=== PATIENT | male | born 1985 | race Caucasian/White ===

== ENCOUNTER 2018-10-24 19:00 | Emergency (ER) | payer BC, OTHER ==
[2018-10-24] MEDS ORDERED: Tetracaine 0.5% OPHTH SOLN/PF 4 ML BOT ONE (19:19)
[2018-10-24] MEDS ORDERED: Sulfacetamide Sodium 10% Ophth Soln 15 ML BOT ONE (19:34)
== END 2018-10-24 19:42 | disposition home or self-care (01) ==
LOC: MADERS 19:00
DX: S05.02XA Injury of conjunctiva and corneal abrasion without foreign body, left eye, initial encounter (principal); Z71.6 Tobacco abuse counseling; F17.210 Nicotine dependence, cigarettes, uncomplicated; W22.8XXA Striking against or struck by other objects, initial encounter
CPT/HCPCS: 99406

== ENCOUNTER 2018-12-04 11:17 | Outpatient (CLI) | payer OTHER ==
[2018-12-04 11:51] LABS: #Basophils 0.1 thou/uL (0.0-0.2); #Eosinphils 0.3 thou/uL (0.0-0.7); #Lymphocytes 3.6 thou/uL (1.20-3.40); #Monocytes 0.6 thou/uL (0.11-0.59); #Neutrophils 5.6 thou/uL (1.40-6.50); %Basophils 1.3 % (0.0-1.0); %Eosinophils 2.9 % (0.0-10.0); %Monocytes 5.5 % (0.0-10.0); %Neutrophils 55.2 % (42.0-75.0); Hemoglobin 15.9 g/dL (14.0-18.0); Mean Corpuscular HGB CONC 33.2 g/dL (32.0-36.0); Mean Corpuscular Hemoglobin 28.5 pg (27.0-31.0); Mean Corpuscular Volume 85.9 fL (78.0-98.0); Mean Platelet Volume 6.3 fL (7.4-10.4); Platelet Count 288 thou/uL (130-400); RBC Distribution Width 11.8 % (11.5-14.5); White Blood Cell (WBC) Count 10.1 thou/uL (4.8-10.8)
[2018-12-04 12:09] LABS: ALT (SGPT) 27 U/L (8-55); AST (SGOT) 19 U/L (5-34); Albumin 5.1 g/dL (3.5-5.0); Alkaline Phosphatase 68 U/L (40-110); Anion Gap 14 mmol/L (10-20); BUN (Urea Nitrogen) 12 mg/dL (8.9-20.6); Bilirubin, Total 0.6 mg/dL (0.2-1.2); Calc. Creatinine Clearance 0 mL/min (70-130); Calcium 10.1 mg/dL (7.8-10.44); Carbon Dioxide 27 mmol/L (22-29); Chloride 104 mmol/L (98-107); Estimated GFR-MDRD Greater than 90; Glucose 82 mg/dL (70-105); Potassium 4.2 mmol/L (3.5-5.1); Protein, Total 8.1 g/dL (6.0-8.3); Sodium 141 mmol/L (136-145)
[2018-12-04 12:25] LABS: Bilirubin Negative (Negative); Blood, Urine Negative (Negative); Clarity Clear (Clear); Glucose, Urine (Dipstick) Negative (Negative); Leukocyte Negative (Negative); Nitrite Negative (Negative); Protein, Urine (Dipstick) Negative (Neg-Trace)
[2018-12-04 12:29] LABS: RBC/HPF None Seen HPF (0-3); Squamous Epithelial None Seen HPF (0-3); WBC/HPF 0-3 HPF (0-3)
--- NOTE | 2018-12-04 14:01 | RAD ---
SUPINE ABDOMEN: Date: 12/04/18 HISTORY: Abdominal pain. FINDINGS: Bowel gas pattern unremarkable. There is scattered stool and gas in the colon. Small bowel gas patter n is normal. No mass or abnormal calcifications seen. IMPRESSION: Unremarkable bowel gas pattern seen on this single supine projection. POS: [facility]
== END 2018-12-04 11:18 | disposition home or self-care (01) ==
LOC: MADLABBHPM 11:17
PROVIDERS: ATTEND Family Medicine
DX: R10.84 Generalized abdominal pain (principal)
CPT/HCPCS: 36415; 74018; 80053; 81001; 85025

== ENCOUNTER 2020-04-22 10:02 | Outpatient (CLI) | payer OTHER | END 2020-04-22 10:03 | disposition home or self-care (01) | LOC: MADRAD 10:02 | PROVIDERS: ATTEND Family Medicine | DX: Z80.1 Family history of malignant neoplasm of trachea, bronchus and lung (principal) | CPT/HCPCS: 71046 ==

== ENCOUNTER 2020-08-25 16:29 | Emergency (ER) | payer OTHER ==
[2020-08-25] MEDS ORDERED: Lidocaine Viscous Sol 2% 15 ml UD Cup ONE (17:12)
[2020-08-25] MEDS ORDERED: Clindamycin 150 MG CAP ONE (17:32)
[2020-08-25] MEDS ORDERED: cefTRIAXone\\ROCEPHIN 1 GM VIAL ONE (17:32)
[2020-08-25] MEDS ORDERED: Morphine 4 MG/ML VIAL ONE (17:32)
[2020-08-25] MEDS ORDERED: Lidocaine 1% 20 ML MDV ONE (17:33)
== END 2020-08-25 17:55 | disposition home or self-care (01) ==
LOC: MADERS 16:29
DX: K04.7 Periapical abscess without sinus (principal)
CPT/HCPCS: 41800; 96372; J0696; J2270